=== PATIENT | female | born 2000 | race African-American/Black ===

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

== ENCOUNTER 2019-01-09 13:30 | Emergency (ER) | payer OTHER ==
[2019-01-09 14:22] VITALS: BP 162/92
--- NOTE | 2019-01-09 14:24 | UC ---
FLU HPI - HPI Summary HPI Summary: 18 yo female presents with fever, chills, fatigue, body aches, and headache since last night. She is a [employer] student and tells me that her roommates have all tested positive for the flu. Pt thinks she may have it. She has taken ibuprofen for her symptoms with mild relief. Denies SOB, chest pain, abdominal pain, n/v/d, dysuria. - History of Current Complaint Chief Complaint: UCGeneralIllness Stated Complaint: BRAVO,NAUSEA Time Seen by Provider: 01/09/19 14:24 Hx Obtained From: Patient Hx Last Menstrual Period: 01/08/19 Onset/Duration: Sudden Onset Severity Currently: Moderate Severity Initially: Moderate Pain Intensity: 8 Pain Scale Used: 0-10 Numeric - Allergy/Home Medications Allergies/Adverse Reactions: Allergies Allergy/AdvReac Type Severity Reaction Status Date / Time UNKNOWN SUBSTANCE Allergy Severe Anaphylatic Uncoded 09/28/18 10:10 Shock Home Medications: Home Medications Dm/Acetaminophen/Doxylamine [Nighttime Cold-Flu Liquid] 1 each PO ONCE 01/09/19 [History Confirmed 01/09/19] SUMAtriptan TAB* [Imitrex TAB*] 25 mg PO DAILY 01/09/19 [History Confirmed 01/09] PMH/Surg Hx/FS Hx/Imm Hx - Additional Past Medical History Additional PMH: Migraines - Surgical History Surgical History: Yes Surgery Procedure, Year, and Place: RIGHT ACL SX--2013 - Family History Known Family History: Positive: Hypertension, Diabetes - Social History Occupation: Student Lives: Dormitory/Roommates Alcohol Use: Occasionally Substance Use Type: None Smoking Status (MU): Never Smoked Tobacco - Immunization History Vaccination Up to Date: Yes Review of Systems All Other Systems Reviewed And Are Negative: Yes Constitutional: Positive: Fever, Chills, Fatigue, Other - Body aches Eyes: Positive: Negative ENT: Positive: Negative Respiratory: Positive: Negative Cardiovascular: Positive: Negative Gastrointestinal: Positive: Negative Neurovascular: Positive: Negative Neurological: Positive: Headache Psychological: Positive: Negative Physical Exam - Summary Physical Exam Summary: GENERAL: NAD. WDWN. No pain distress. SKIN: No rashes, sores, lesions, or open wounds. HEENT: Head: AT/NC Eyes: EOM intact. Conjunctiva clear without inflammation or discharge. Ears: Hearing grossly normal. TMs intact, no bulging, erythema, or edema. Nose: Nasal mucosa pink and moist. NTTP maxillary and frontal sinus. Throat: Posterior oropharynx without exudates, erythema, or tonsillar enlargement. Uvula midline. NECK: Supple. Nontender. No lymphadenopathy. CHEST: CTAB. No r/r/w. No accessory muscle use. Breathing comfortably and in no distress. CV: RRR. Without m/r/g. Pulses intact. Cap refill <2seconds NEURO: Alert. PSYCH: Age appropriate behavior. Triage Information Reviewed: Yes Vital Signs: Initial Vital Signs Temp 99.3 F 01/09/19 14:18 Pulse 121 01/09/19 14:18 Resp 17 01/09/19 14:18 BP 162/92 01/09/19 14:18 Pulse Ox 100 01/09/19 14:18 Laboratory Tests 01/09/19 14:28 Influenza A (Rapid) Positive A Vital Signs Reviewed: Yes Flu Course/Dx - Course Course Of Treatment: POC flu positive. Rx for tamiflu - Differential Dx/Diagnosis Provider Diagnosis: Influenza Discharge - Sign-Out/Discharge Documenting (check all that apply): Patient Departure All imaging exams completed and their final reports reviewed: No Studies - Discharge Plan Condition: Stable Disposition: HOME Prescriptions: Oseltamivir CAP* [Tamiflu CAP*] 75 mg PO BID #10 cap Patient Education Materials: Influenza (DC) Forms: *School Release, *Work Release Referrals: No Primary Care Phys,NOPCP [Primary Care Provider] - Additional Instructions: If you develop a fever, shortness of breath, chest pain, new or worsening symptoms - please call your PCP or go to the ED. Your blood pressure was high at todays visit. Please see your primary provider within 4 weeks for recheck and re-evaluation. 1) Rest and drink plenty of fluids! 2) May continue taking tylenol and ibuprofen as directed for fever and discomfort - Billing Disposition and Condition Condition: STABLE Disposition: Home
[2019-01-09 14:32] LABS: Influenza A Molecular POSITIVE (Negative)
== END 2019-01-09 14:47 | disposition home or self-care (01) ==
LOC: UCCORT 13:30
DX: J11.1 Influenza due to unidentified influenza virus with other respiratory manifestations (principal)
CPT/HCPCS: 99212; G0463

== ENCOUNTER 2019-08-15 17:16 | Emergency (ER) | payer OTHER ==
[2019-08-15 17:59] VITALS: BP 114/67
[2019-08-15] MEDS ORDERED: predniSONE TAB* 20 MG PO ONE (18:38)
[2019-08-15] MEDS ORDERED: Albuterol HFA INHALER* 8 gm MDI INH ONE (18:39)
--- NOTE | 2019-08-15 18:44 | UC ---
Respiratory Complaint HPI - HPI Summary HPI Summary: 18 yo female with cough and chest tightness x 1 week no fever or chills no myalgias no n/v/d - History of Current Complaint Chief Complaint: UCRespiratory Stated Complaint: COUGH/HEADACHE Time Seen by Provider: 08/15/19 18:33 Hx Obtained From: Patient Hx Last Menstrual Period: nexplanon Onset/Duration: Gradual Onset Timing: Constant Severity Initially: Mild Severity Currently: Moderate Pain Intensity: 0 Pain Scale Used: 0-10 Numeric Character: Cough: Productive Aggravating Factors: Exertion, Deep Breaths Alleviating Factors: Nothing Associated Signs And Symptoms: Positive: Nasal Congestion - Allergies/Home Medications Allergies/Adverse Reactions: Allergies Allergy/AdvReac Type Severity Reaction Status Date / Time No Known Allergies Allergy Verified 08/15/19 17:54 PMH/Surg Hx/FS Hx/Imm Hx Previously Healthy: Yes - Surgical History Surgical History: Yes Surgery Procedure, Year, and Place: RIGHT ACL SX--2013 - Family History Known Family History: Positive: Hypertension, Diabetes - Social History Alcohol Use: Occasionally Substance Use Type: None Smoking Status (MU): Never Smoked Tobacco - Immunization History Vaccination Up to Date: Yes Review of Systems All Other Systems Reviewed And Are Negative: Yes Constitutional: Positive: Negative Skin: Positive: Negative Eyes: Positive: Negative ENT: Positive: Negative Respiratory: Positive: Cough Cardiovascular: Positive: Negative Gastrointestinal: Positive: Negative Genitourinary: Positive: Negative Motor: Positive: Negative Neurovascular: Positive: Negative Musculoskeletal: Positive: Negative Neurological: Positive: Negative Psychological: Positive: Negative Physical Exam Triage Information Reviewed: Yes Appearance: Well-Appearing, No Pain Distress, Well-Nourished Vital Signs: Initial Vital Signs Temp 99 F 08/15/19 17:54 Pulse 84 08/15/19 17:54 Resp 16 08/15/19 17:54 BP 114/67 08/15/19 17:54 Pulse Ox 98 08/15/19 17:54 Vital Signs Reviewed: Yes Eyes: Positive: Conjunctiva Clear ENT: Positive: Hearing grossly normal, TMs normal. Negative: Nasal congestion, Nasal drainage, Trismus, Muffled voice, Hoarse voice Neck: Positive: Supple, Nontender, No Lymphadenopathy Respiratory: Positive: Lungs clear, Normal breath sounds, No respiratory distress, No accessory muscle use Cardiovascular: Positive: RRR, No Murmur Musculoskeletal: Positive: Strength Intact, ROM Intact, No Edema Neurological: Positive: Alert Psychological Exam: Normal Skin Exam: Normal Respiratory Course/Dx - Differential Dx/Diagnosis Provider Diagnosis: Acute bronchitis, viral Discharge ED - Sign-Out/Discharge Documenting (check all that apply): Patient Departure All imaging exams completed and their final reports reviewed: No Studies - Discharge Plan Condition: Stable Disposition: HOME Prescriptions: Benzonatate CAP* [Tessalon CAP*] 100 - 200 mg PO TID PRN #28 cap PRN Reason: Cough predniSONE [Deltasone 20 MG TAB] 40 mg PO DAILY #10 tab Patient Education Materials: Bronchospasm (ED), How to Use a Metered-Dose Inhaler and a Spacer (ED) Referrals: No Primary Care Phys,NOPCP [Primary Care Provider] - Additional Instructions: please return for worsening symptoms or if not better in 4-5 days - Billing Disposition and Condition Condition: STABLE Disposition: Home
== END 2019-08-15 19:01 | disposition home or self-care (01) ==
LOC: UCCORT 17:16
DX: J20.8 Acute bronchitis due to other specified organisms (principal)
CPT/HCPCS: 99213; A9270-GY; G0463; J7512

== ENCOUNTER 2019-09-11 21:18 | Emergency (ER) | payer OTHER ==
[2019-09-11 21:34] VITALS: BP 122/92
--- NOTE | 2019-09-11 21:34 | UC ---
Abdominal Pain Female HPI - HPI Summary HPI Summary: 18 yo female presents with LLQ abdominal pain. She tells me that 2 days ago she developed sudden severe LLQ pain with nausea, vomiting, and diarrhea. Yesterday her symptoms improved and her pain was much more tolerable, but still have vomiting and diarrhea. Today her pain became severe again. She has vomited 5 times today and had diarrhea 5-6 times. She has eaten, but vomits shortly after. She has felt feverish, but has not taken her temperature. Also endorses b /l flank pain worse on the left. Denies SOB, chest pain, dysuria, vaginal bleeding or discharge. No hx of diverticulitis or kidney stones. Her roommates are with her and state that they feel fine and are not ill - History of Current Complaint Stated Complaint: ABD PAIN Time Seen by Provider: 09/11/19 21:34 Hx Obtained From: Patient Hx Last Menstrual Period: nexplanon Onset/Duration: Sudden Onset Severity Initially: Severe Severity Currently: Severe Pain Intensity: 9 Pain Scale Used: 0-10 Numeric Allergies/Adverse Reactions: Allergies Allergy/AdvReac Type Severity Reaction Status Date / Time No Known Allergies Allergy Verified 09/11/19 21:34 PMH/Surg Hx/FS Hx/Imm Hx - Additional Past Medical History Additional PMH: None - Surgical History Surgical History: Yes Surgery Procedure, Year, and Place: RIGHT ACL SX--2013 - Family History Known Family History: Positive: Hypertension, Diabetes - Social History Occupation: Student Lives: Dormitory/Roommates Alcohol Use: Occasionally Substance Use Type: None Smoking Status (MU): Never Smoked Tobacco - Immunization History Vaccination Up to Date: Yes Review of Systems All Other Systems Reviewed And Are Negative: No Constitutional: Positive: Negative Skin: Positive: Negative Respiratory: Positive: Negative Cardiovascular: Positive: Negative Gastrointestinal: Positive: Abdominal Pain, Vomiting, Diarrhea, Nausea Genitourinary: Positive: Negative Neurological: Positive: Negative Psychological: Positive: Negative Physical Exam - Summary Physical Exam Summary: GENERAL: Moderate pain distress SKIN: No rashes, sores, lesions, or open wounds. NECK: Supple. Nontender. No lymphadenopathy. CHEST: CTAB. No r/r/w. No accessory muscle use. Breathing comfortably and in no distress. CV: RRR. Pulses intact. Cap refill <2seconds ABDOMEN: Moderate LLQ pain. Moderate LEFT CVA TTP and mild RIGHT CVA TTP. No distention or guarding. Bowel sounds present NEURO: Alert. PSYCH: Age appropriate behavior. Triage Information Reviewed: Yes Vital Signs: Initial Vital Signs Temp 99.4 F 09/11/19 21:30 Pulse 100 09/11/19 21:30 Resp 16 09/11/19 21:30 BP 122/92 09/11/19 21:30 Pulse Ox 100 09/11/19 21:30 Laboratory Tests 09/11/19 09/11/19 21:38 21:41 POC Urine Color Yellow POC Urine Clarity Clear POC Urine pH 7.0 POC Ur Specif [place] 1.025 POC Urine Protein 3+ A POC Ur Glucose (UA) Negative POC Urine Ketones Negative POC Urine Blood Trace-intact A POC Urine Nitrite Negative POC Urine Bilirubin Negative POC Urine Urobilinogen 0.2 POC U Leukocyte Esteras 2+ A POC Ur Test Negative Vital Signs Reviewed: Yes Abd Pain Female Course/Dx - Course Course Of Treatment: UA with protein, trace blood, and leuks. Urine negative. Suspicion for pyelonephritis, UTI, diverticulitis, or colitis. I recommended pt be transferred to the ED via ambulance given her discomfort, but she declined ambulance transfer and will have her friend with her today drive her now. - Differential Dx/Diagnosis Provider Diagnosis: LLQ pain, Vomiting, Diarrhea Discharge ED - Sign-Out/Discharge Documenting (check all that apply): Patient Departure All imaging exams completed and their final reports reviewed: No Studies - Discharge Plan Condition: Stable Disposition: HOME-RECOMMEND TO ED Referrals: No Primary Care Phys,NOPCP [Primary Care Provider] - Additional Instructions: Please go to the ER for your vomiting, diarrhea, and left lower abdominal pain - Billing Disposition and Condition Condition: STABLE Disposition: Home-Recommend to ED - Attestation Statements Provider Attestation: Chart reviewed. Pt not seen by me. I was available for consult. JEANIE
== END 2019-09-11 21:50 | disposition home health service (06) ==
LOC: UCCORT 21:18
DX: R10.32 Left lower quadrant pain (principal); R19.7 Diarrhea, unspecified; R11.2 Nausea with vomiting, unspecified
CPT/HCPCS: 81003; 84702; 87077; 87086; 99212; G0463